=== PATIENT | male | born 1995 | race Caucasian/White ===

== ENCOUNTER → 2022-08-30 | Outpatient (CLI) | payer OTHER, SELFPAY ==
[2022-08-30 10:03] LABS: Absolute Lymphocyte Count 2.84 X10^3/uL (0.83-4.51); Absolute Neutrophil Count 3.5 X10^3/uL (2.0-7.7); Basophil# 0.08 X10^3/uL; Basophil% 1.1 % (0-1); Eosinophil# 0.18 X10^3/uL; Eosinophils% 2.5 % (0-5); Hematocrit 46.5 % (40-54); Hemoglobin 15.3 g/dL (13.0-16.5); Lymphocyte # 2.84 X10^3/ul (0.83-4.51); Lymphocyte % 39.6 % (19-41); Mean Corp Hgb Conc 32.9 g/dL (32-36); Mean Corpuscular Volume 94.1 fL (80-94); Mean Platelet Vol. 10.3 fl (6.2-12.0); Monocyte# 0.54 X10^3/uL; Monocyte% 7.5 % (0-10); NRBC Flagged by Analyzer 0 % (0-5); Neutrophil # 3.51 X10^3/uL (2.7-7.7); Platelet Count 299 K/mm3 (150-450); RBC Distribution Width SD 44.4 fl (35.1-43.9); Red Blood Count 4.94 M/mm3 (4.6-6.2); White Blood Count 7.2 K/mm3 (4.4-11.0)
[2022-08-30 10:20] LABS: Erythrocyte Sedimentation Rate 27 mm/hr (0-20)
[2022-08-30 10:36] LABS: Vitamin B12 554 pg/mL (211-911); Vitamin D,25 Hydroxy 13.3 ng/mL
[2022-08-30 10:49] LABS: AST(SGOT) 55 U/L (15-37); Alanine Aminotransfer ALT/SGPT 87 U/L (16-61); Albumin, Serum 3.8 g/dL (3.2-5.0); Alkaline Phosphatase 70 U/L (45-117); Anion Gap 7 (5-15); BUN 14 mg/dL (7-18); BUN/Creat Ratio 10.9 RATIO (10-20); CRP 9.11 mg/L (0.0-3.0); Calcium,Total 9.2 mg/dL (8.5-10.1); Chloride 104 mmol/L (98-107); Cholesterol 184 mg/dL (200); Creatinine, Serum 1.28 mg/dL (0.70-1.30); EST Glomerular Filtration Rate 71 mL/min (>60); Est Glom Filt Rate - Afr Amer 85 mL/min (>60); Globulin 3.9 g/dL (2.2-4.2); Glucose 120 mg/dL (74-106); High Density Lipoprotein 30 mg/dL; Potassium 3.8 mmol/L (3.5-5.1); Protein, Total 7.7 g/dL (6.4-8.2); Rheumatoid Factor < 10.0 IU/mL (<15); Sodium Level 138 mmol/L (136-145); Thyroid Stim Hormone (TSH) 1.89 uIU/mL (0.358-3.74); Triglycerides 379 mg/dL; Uric Acid 10.1 mg/dL (3.5-7.2); Very Low Density Lipoprotein 76 mg/dL (5-40)
[2022-08-31 15:52] LABS: ANTINUCLEAR ANTIBODIES DIRECT Negative (Negative)
== END | disposition home or self-care (01) ==
PROVIDERS: PCP Family Medicine; Visit Provider Family Medicine
DX: M79.10 Myalgia, unspecified site (principal); E11.9 Type 2 diabetes mellitus without complications
CPT/HCPCS: 80053; 80061; 82306; 82607; 84443; 84550; 85025; 85652; 86038; 86140; 86431

== ENCOUNTER → 2022-10-26 | Outpatient (CLI) | payer OTHER, SELFPAY ==
[2022-11-02 20:08] LABS: Insulin Like Growth Factor 134 ng/mL (101-307)
== END | disposition home or self-care (01) ==
PROVIDERS: PCP Family Medicine; Visit Provider Internal Medicine
DX: E22.0 Acromegaly and pituitary gigantism (principal)
CPT/HCPCS: 36415; 84305

== ENCOUNTER → 2022-12-23 | Outpatient (CLI) | payer OTHER, SELFPAY ==
[2022-12-23 17:35] LABS: Absolute Lymphocyte Count 3.02 X10^3/uL (0.83-4.51); Basophil# 0.08 X10^3/uL; Eosinophil# 0.21 X10^3/uL; Eosinophils% 2.6 % (0-5); Hematocrit 44.1 % (40-54); Hemoglobin 14.5 g/dL (13.0-16.5); Lymphocyte # 3.02 X10^3/ul (0.83-4.51); Lymphocyte % 37.7 % (19-41); Mean Corp Hgb Conc 32.9 g/dL (32-36); Mean Corpuscular Hgb 31.2 pg (27.0-32.0); Mean Corpuscular Volume 94.8 fL (80-94); Mean Platelet Vol. 9.9 fl (6.2-12.0); Monocyte# 0.69 X10^3/uL; Monocyte% 8.6 % (0-10); NRBC Flagged by Analyzer 0 % (0-5); Neutrophil # 3.99 X10^3/uL (2.7-7.7); Neutrophil % 49.9 % (47-70); Platelet Count 286 K/mm3 (150-450); RBC Distribution Width CV 12.6 % (11.6-14.6); RBC Distribution Width SD 43.8 fl (35.1-43.9); Red Blood Count 4.65 M/mm3 (4.6-6.2)
[2022-12-23 17:55] LABS: ALB/GLOB Ratio 0.9 RATIO (0.9-2.4); AST(SGOT) 26 U/L (15-37); Alanine Aminotransfer ALT/SGPT 39 U/L (16-61); Albumin, Serum 3.8 g/dL (3.2-5.0); Alkaline Phosphatase 64 U/L (45-117); Anion Gap 6 (5-15); BUN 16 mg/dL (7-18); BUN/Creat Ratio 10.7 RATIO (10-20); Calcium,Total 9.1 mg/dL (8.5-10.1); Chloride 105 mmol/L (98-107); EST Glomerular Filtration Rate 59 mL/min (>60); Est Glom Filt Rate - Afr Amer 71 mL/min (>60); Globulin 4.2 g/dL (2.2-4.2); Glucose 105 mg/dL (74-106); Potassium 3.8 mmol/L (3.5-5.1); Sodium Level 138 mmol/L (136-145)
[2022-12-23 17:57] LABS: Erythrocyte Sedimentation Rate 18 mm/hr (0-20)
== END | disposition home or self-care (01) ==
LOC: MFPLAB 15:39
PROVIDERS: PCP Family Medicine; Visit Provider Family Medicine
DX: R03.0 Elevated blood-pressure reading, without diagnosis of hypertension (principal)
CPT/HCPCS: 36415; 80053; 85025; 85652

== ENCOUNTER → 2022-12-23 | Outpatient (CLI) | payer OTHER, SELFPAY ==
--- NOTE | 2022-12-23 17:55 | US_ITS ---
STUDY: ABDOMINAL ULTRASOUND - RIGHT UPPER QUADRANT REASON FOR VISIT: Male, 27 years old Epigastric and RUQ pain TECHNIQUE: Ultrasound evaluation of the right upper quadrant was performed with real-time and static pa-scale imaging. TECHNICAL QUALITY: Adequate. COMPARISON: None. FINDINGS: Liver: The liver measures 17.9 cm. There is diffusely increased echogenicity of the liver. The bile ducts are within normal limits. There is hepatic color flow. The direction of portal flow is hepatopetal. There is no demonstrated mass lesion. Gallbladder: Normal distended gallbladder. The gallbladder wall measures 2 mm. There is a negative sonographic Centeno''s sign. There is no pericholecystic fluid. There are no gallstones. Common Bile Duct (C.B.D.): The common bile duct measures 4 mm. Pancreas: Not visualized due to bowel gas producing artifact. Right Kidney: Normal size of the right kidney. The right kidney measures 10.1 x 5.8 x 5.2 cm. Normal renal cortex. The right cortex measures 1.5 cm. There is no demonstrated renal mass or cyst. There is no right hydronephrosis. US/Abdomen Limited IMPRESSION: Large fatty infiltrated liver without evidence for gallstones or acute cholecystitis.. Nonvisualization of pancreas due to bowel gas producing artifact Electronically Signed: Cristofer Oliveros MD at 19:00 EDT ,
== END | disposition home or self-care (01) ==
LOC: US 17:53
PROVIDERS: PCP Family Medicine; Referring Provider Family Medicine; Visit Provider Family Medicine
DX: R03.0 Elevated blood-pressure reading, without diagnosis of hypertension (principal)
CPT/HCPCS: 76705

== ENCOUNTER → 2022-12-29 | Outpatient (CLI) | payer OTHER, SELFPAY ==
--- NOTE | 2022-12-29 15:49 | CT_ITS ---
EXAM: CT ABDOMEN AND PELVIS WITH INTRAVENOUS CONTRAST CLINICAL INDICATION: EPIGASTRIC PAIN TECHNIQUE: Helically acquired images were obtained of the abdomen and pelvis with intravenous contrast. This CT exam was performed using one or more of the following dose reduction techniques: automated exposure control, adjustment of the mA and/or kV according to patient size, and/or use of iterative reconstruction technique. CONTRAST: Oral and amp; IV Readi-CAT and amp; 100mL Isovue-300 COMPARISON: No relevant prior studies available. FINDINGS: LOWER THORAX: Unremarkable. Lung bases are clear. No cardiomegaly. No significant pericardial effusion. ABDOMEN: LIVER: Unremarkable. Homogeneous. No focal mass. GALLBLADDER AND BILE DUCTS: Unremarkable. No calcified gallstones. No gallbladder distention or wall edema. No intra- or extrahepatic biliary ductal dilation. PANCREAS: Unremarkable. No focal cystic or solid mass. SPLEEN: Unremarkable. Normal size without focal cystic or solid mass. ADRENALS: Unremarkable. No nodules. KIDNEYS AND URETERS: Unremarkable. Normal renal size and position. No hydronephrosis. STOMACH AND BOWEL: Unremarkable. No stomach or bowel distention. No focal inflammatory change. PELVIS: APPENDIX: No evidence of acute appendicitis. BLADDER: Unremarkable. REPRODUCTIVE: Unremarkable as visualized. No mass. ABDOMEN and PELVIS: INTRAPERITONEAL SPACE: Unremarkable. No ascites or other fluid collection. No free air. BONES/JOINTS: Unremarkable. No suspicious lytic or blastic abnormality. SOFT TISSUES: Unremarkable. No discrete abdominal or pelvic wall hernia. VASCULATURE: Unremarkable. Abdominal aorta is non-dilated. LYMPH NODES: Unremarkable. No enlarged lymph nodes. CT/Abdomen/Pelvis WITH Contrast IMPRESSION: Negative CT of the abdomen and pelvis with intravenous contrast. Electronically Signed: Eduardo Vegas MD at 16:37 EDT ,
== END | disposition home or self-care (01) ==
LOC: CT 15:44
PROVIDERS: PCP Family Medicine; Referring Provider Family Medicine; Visit Provider Family Medicine
DX: R10.13 Epigastric pain (principal)
CPT/HCPCS: 74177; Q9967

== ENCOUNTER → 2023-02-18 | Outpatient (CLI) | payer OTHER, SELFPAY ==
[2023-02-18 17:36] LABS: Absolute Lymphocyte Count 2.93 X10^3/uL (0.83-4.51); Absolute Neutrophil Count 4.1 X10^3/uL (2.0-7.7); Basophil# 0.08 X10^3/uL; Eosinophil# 0.23 X10^3/uL; Eosinophils% 2.8 % (0-5); Hematocrit 44.1 % (40-54); Hemoglobin 14.2 g/dL (13.0-16.5); Lymphocyte # 2.93 X10^3/ul (0.83-4.51); Lymphocyte % 36.3 % (19-41); Mean Corp Hgb Conc 32.2 g/dL (32-36); Mean Corpuscular Hgb 30.5 pg (27.0-32.0); Mean Corpuscular Volume 94.6 fL (80-94); Mean Platelet Vol. 10.3 fl (6.2-12.0); Monocyte# 0.68 X10^3/uL; Monocyte% 8.4 % (0-10); NRBC Flagged by Analyzer 0 % (0-5); Neutrophil # 4.13 X10^3/uL (2.7-7.7); Neutrophil % 51.1 % (47-70); Platelet Count 327 K/mm3 (150-450); RBC Distribution Width CV 12.5 % (11.6-14.6); RBC Distribution Width SD 43.4 fl (35.1-43.9); Red Blood Count 4.66 M/mm3 (4.6-6.2); White Blood Count 8.1 K/mm3 (4.4-11.0)
[2023-02-18 17:49] LABS: Erythrocyte Sedimentation Rate 26 mm/hr (0-20)
[2023-02-18 18:14] LABS: Vitamin B12 425 pg/mL (211-911)
[2023-02-18 18:34] LABS: ALB/GLOB Ratio 0.9 RATIO (0.9-2.4); AST(SGOT) 24 U/L (15-37); Alanine Aminotransfer ALT/SGPT 31 U/L (16-61); Albumin, Serum 3.7 g/dL (3.2-5.0); Alkaline Phosphatase 76 U/L (45-117); Anion Gap 6 (5-15); BUN 19 mg/dL (7-18); BUN/Creat Ratio 13.4 RATIO (10-20); Calcium,Total 9.2 mg/dL (8.5-10.1); Chloride 106 mmol/L (98-107); Creatinine, Serum 1.42 mg/dL (0.70-1.30); EST Glomerular Filtration Rate 62 mL/min (>60); Est Glom Filt Rate - Afr Amer 76 mL/min (>60); Globulin 4.1 g/dL (2.2-4.2); Glucose 104 mg/dL (74-106); Potassium 3.6 mmol/L (3.5-5.1); Protein, Total 7.8 g/dL (6.4-8.2); Sodium Level 139 mmol/L (136-145); Thyroid Stim Hormone (TSH) 1.87 uIU/mL (0.358-3.74)
[2023-02-22 14:08] LABS: Lyme Scn Total Ab w/Rflx Negative (Negative); PROEL- A/G Ratio 1.1 (0.7-1.7); PROEL- Albumin 3.6 g/dL (2.9-4.4); PROEL- Alpha-1 Globulin 0.3 g/dL (0.0-0.4); PROEL- Beta Globulin 1.2 g/dL (0.7-1.3); PROEL- Gamma Globulin 0.9 g/dL (0.4-1.8); PROEL- Globulin, Total 3.3 g/dL (2.2-3.9); PROEL- TOTAL PROTEIN 6.9 g/dL (6.0-8.5)
== END | disposition home or self-care (01) ==
LOC: MFPLAB 15:20
PROVIDERS: PCP Family Medicine; Visit Provider Family Medicine
DX: R20.2 Paresthesia of skin (principal)
CPT/HCPCS: 36415; 80053; 82607; 84165; 84443; 85025; 85652; 86140; 86618

== ENCOUNTER → 2023-03-03 | Outpatient (CLI) | payer OTHER, SELFPAY ==
[2023-03-03 18:14] LABS: CRP 5.38 mg/L (0.0-3.0); Rheumatoid Factor < 10.0 IU/mL (<15); Uric Acid 7.9 mg/dL (3.5-7.2)
[2023-03-03 18:40] LABS: Erythrocyte Sedimentation Rate 13 mm/hr (0-20)
[2023-03-03 19:45] LABS: Hemoglobin A1c 5.7 % (3.8-5.6)
[2023-03-05 11:08] LABS: CCP IgG Antibodies 11 units (0-19)
[2023-03-05 14:10] LABS: ANTINUCLEAR ANTIBODIES DIRECT Negative (Negative)
== END | disposition home or self-care (01) ==
LOC: MFPLAB 16:33
PROVIDERS: PCP Family Medicine; Visit Provider Family Medicine
DX: E11.9 Type 2 diabetes mellitus without complications (principal); R79.82 Elevated C-reactive protein (CRP)
CPT/HCPCS: 36415; 83036; 84550; 85652; 86038; 86140; 86200; 86431

== ENCOUNTER → 2023-04-04 | Outpatient (CLI) | payer OTHER, SELFPAY ==
[2023-04-04 17:52] LABS: Absolute Neutrophil Count 4.8 X10^3/uL (2.0-7.7); Basophil# 0.08 X10^3/uL; Basophil% 0.9 % (0-1); Eosinophil# 0.27 X10^3/uL; Hematocrit 46.9 % (40-54); Hemoglobin 15.3 g/dL (13.0-16.5); Lymphocyte % 35.7 % (19-41); Mean Corp Hgb Conc 32.6 g/dL (32-36); Mean Corpuscular Hgb 30.4 pg (27.0-32.0); Mean Corpuscular Volume 93.2 fL (80-94); Mean Platelet Vol. 10.2 fl (6.2-12.0); Monocyte# 0.58 X10^3/uL; Monocyte% 6.5 % (0-10); NRBC Flagged by Analyzer 0 % (0-5); Neutrophil % 53.5 % (47-70); Platelet Count 339 K/mm3 (150-450); RBC Distribution Width CV 12.4 % (11.6-14.6); RBC Distribution Width SD 42.6 fl (35.1-43.9); Red Blood Count 5.03 M/mm3 (4.6-6.2)
[2023-04-04 18:31] LABS: Anion Gap -8 (5-15); BUN 17 mg/dL (7-18); CRP 4.34 mg/L (0.0-3.0); Calcium,Total 9.3 mg/dL (8.5-10.1); Chloride 106 mmol/L (98-107); Creatinine, Serum 1.21 mg/dL (0.70-1.30); EST Glomerular Filtration Rate 75 mL/min (>60); Est Glom Filt Rate - Afr Amer 91 mL/min (>60); Ferritin 144 ng/mL (26-388); Glucose 102 mg/dL (74-106); Iron 71 ug/dL (65-175); Magnesium 2.3 mg/dL (1.6-2.6); Potassium 3.7 mmol/L (3.5-5.1); Sodium Level 126 mmol/L (136-145); Thyroid Stim Hormone (TSH) 2.89 uIU/mL (0.358-3.74)
== END | disposition home or self-care (01) ==
LOC: MFPLAB 15:30
PROVIDERS: PCP Family Medicine; Visit Provider Family Medicine
DX: R79.82 Elevated C-reactive protein (CRP) (principal); R55 Syncope and collapse
CPT/HCPCS: 36415; 80048; 82728; 83540; 83735; 84443; 85025; 86140

== ENCOUNTER → 2023-04-05 | Outpatient (CLI) | payer OTHER, SELFPAY ==
[2023-04-05 18:06] LABS: Urine Sodium 157 mmol/L (Not Establ.)
[2023-04-05 18:49] LABS: Anion Gap 4 (5-15); BUN 15 mg/dL (7-18); BUN/Creat Ratio 10.1 RATIO (10-20); Calcium,Total 8.8 mg/dL (8.5-10.1); Chloride 105 mmol/L (98-107); Creatinine, Serum 1.48 mg/dL (0.70-1.30); EST Glomerular Filtration Rate 59 mL/min (>60); Est Glom Filt Rate - Afr Amer 72 mL/min (>60); Glucose 130 mg/dL (74-106); Potassium 3.8 mmol/L (3.5-5.1); Sodium Level 138 mmol/L (136-145)
[2023-04-05 18:54] LABS: Osmolality, Serum 297 mOsm/KG (275-295)
== END | disposition home or self-care (01) ==
LOC: MFPLAB 14:59
PROVIDERS: PCP Family Medicine; Visit Provider Family Medicine
DX: E87.1 Hypo-osmolality and hyponatremia (principal)
CPT/HCPCS: 36415; 80048; 83930; 84300

== ENCOUNTER → 2023-05-03 | Outpatient (CLI) | payer OTHER, SELFPAY ==
[2023-05-03 10:40] LABS: Hemoglobin A1c 5.8 % (3.8-5.6)
[2023-05-03 10:57] LABS: ALB/GLOB Ratio 0.9 RATIO (0.9-2.4); AST(SGOT) 28 U/L (15-37); Alanine Aminotransfer ALT/SGPT 37 U/L (16-61); Albumin, Serum 3.8 g/dL (3.2-5.0); Alkaline Phosphatase 71 U/L (45-117); Anion Gap 6 (5-15); BUN 13 mg/dL (7-18); BUN/Creat Ratio 9.2 RATIO (10-20); Calcium,Total 9.4 mg/dL (8.5-10.1); Chloride 104 mmol/L (98-107); Creatinine, Serum 1.42 mg/dL (0.70-1.30); EST Glomerular Filtration Rate 62 mL/min (>60); Est Glom Filt Rate - Afr Amer 75 mL/min (>60); Globulin 4.1 g/dL (2.2-4.2); Glucose 113 mg/dL (74-106); Potassium 4.1 mmol/L (3.5-5.1); Protein, Total 7.9 g/dL (6.4-8.2); Sodium Level 136 mmol/L (136-145); T4 Free Direct 0.85 ng/dL (0.76-1.46); Thyroid Stim Hormone (TSH) 1.95 uIU/mL (0.358-3.74)
[2023-05-10 12:09] LABS: Dopamine, Pl <30 pg/mL (0-48); Epinephrine, Pl 35 pg/mL (0-62); Norepinephrine, Pl 393 pg/mL (0-874); Thyroid Peroxidase AB < 9 IU/mL (0-34); Thyroid Stim Immunoglob <0.10 IU/L (0.00-0.55)
== END | disposition home or self-care (01) ==
LOC: MFPLAB 08:46
PROVIDERS: PCP Family Medicine; Visit Provider Family Medicine
DX: R00.2 Palpitations (principal); E11.9 Type 2 diabetes mellitus without complications
CPT/HCPCS: 36415; 80053; 82384; 82533; 83036; 84439; 84443; 84445; 86376

== ENCOUNTER → 2023-06-14 | Outpatient (CLI) | payer OTHER, SELFPAY ==
--- NOTE | 2023-06-14 13:41 | STEWCON_ITS ---
Reason For Study: Syncope Stress Results Protocol: [facility] Protocol WITH DEFINITY Maximum Predicted HR: 191 bpm Target HR: 162 bpm % Maximum Predicted HR: 98 % DurationHeart Rate Stage (mm:ss) (bpm) BP Comment Baseline 77 118/80No Chest Pain; 3 ML Definity [facility] Protoocl Stage I 3:00 130 116/74No Chest Pain [facility] Protocol Stage II 3:00 155 132/70No Chest Pain [facility] Protocol Stage III 3:00 176 152/78No Chest Pain; Mild Dyspnea [facility] Protocol Stage IV 1:00 187 / No Chest Pain: Moderate Dyspnea Recovery 112 138/60No Chest Pain Stress Duration: 10:00 mm:ss Maximum Stress HR: 187 bpm METS: 13 Baseline Echocardiogram Findings Stress Echo Wall motion Data Resting WM Intermediate WM Stress WM Resting Wall Motion Wall Motion Stress No regional wall motion All segments Hyperkinetic. abnormalities noted. Ejection Fraction 55 %. EKG Data The baseline ECG displays normal sinus rhythm. No ischemic ECG changes with exercise. ECHO/Stress Test Echo W/Contrast Interpretation Summary No ischemic ECG changes with exercise. All LV wall segments augment postexercise. No echo evidence of ischemia. Ordering Physician: Hong Morillo Referring Physician: Hong Morillo Performed By: Alicia Lobo, NILE, RVT
--- OUTSIDE RECORDS SUMMARY | 2023-06-14 14:06 | XMS RPT_ITS | CCD ---
Author Name Unknown Address [address] [place] [address] Organization [facility] Care Team Providers Care Analysis Internship Name Role Phone Esterle, Yuni Unavailable Unavailable Esterle, Yuni Unavailable Unavailable Esterle, Yuni Unavailable Unavailable VAMSI GARCIA Unavailable Unavailable Sang Jones DO Primary Care Provider Sang Jones DO Primary Care Provider Medications Completed/Discontinued Medications Medication Drug Class(es) Dates Sig (Normalized) Sig (Original) busPIRone hydrochloride 10 mg oral tablet (1 source) End: 12-31-2021 take 7.5 mg by mouth twice daily busPIRone (BUSPAR) 10 mg tablet Take 7.5 mg by mouth twice daily. 0 12/31/2021 Discontinued Problems Active Problems Problem Classification Problem Date Documented Da te Episodic/Chronic Anxiety disorders (6 sources) Generalized anxiety disorder; Translations: [Generalized anxiety disorder] Onset: 12-31-2021 Chronic Essential hypertension (6 sources) Essential hypertension; Translations: [Essential (primary) hypertension] Onset: 12-31-2021 Chronic Immunizations and screening for infectious disease (2 sources) Patient encounter status; Translations: [Encounter for immunization] Episodic Mood disorders (6 sources) Recurrent major depressive episodes, moderate ; Translations: [Major depressive disorder, recurrent, moderate] Onset: 12-31-2021 Chronic Other connective tissue disease (1 source) Pain in left foot; Translations: [Pain in left foot] Onset: 06-17-2018 Episodic Other liver diseases (2 sources) Fatty (change of) liver, not elsewhere classified; Translations: [Fatty (change of) liver, not elsewhere classified] Onset: 05-02-2018 Chronic Other liver diseases (2 sources) Abnormal levels of other serum enzymes; Translations: [Abnormal levels of other serum enzymes] Onset: 05-02-2018 Episodic Other nutritional; endocrine; and metabolic disorders (4 sources) Body mass index 40+ - severely obese; Translations: [Morbid (severe) obesity due to excess calories] Onset: 12-31-2021 Chronic Past or Other Problems Problem Classification Problem Date Documented Da te Episodic/Chronic Other non-traumatic joint disorders (4 sources) Multiple joint pain; Translations: [Pain in unspecified joint] Onset: 12-31-2021 Episodic Results Test Name Value Interpretation Reference Range Facil ity Vital Signs Date Time Vital Sign Value Performing Clinician Yung lity 12-31-2021 09:33-0400 Body height 180.3 cm Sangbryant Prasadcini [employer] Work Phone: [facility] 12-31-2021 09:33-0400 Body weight 153.32 kg Sang Jones DO Work Phone: [facility] 12-31-2021 09:33-0400 Diastolic blood pressure 90 mm[Hg] Sang Andersoni DO Work Phone: [facility] 12-31-2021 09:33-0400 Heart rate 81 /min Sangbryant Jones DO Work Phone: [facility] 12-31-2021 09:33-0400 SaO2% (BldA) [Mass fraction] 97 % Sang Andersoni DO Work Phone: [facility] 12-31-2021 09:33-0400 Systolic blood pressure 160 mm[Hg] Sangbryant Prasadcini DO Work Phone: [facility] Encounters Encounter Date Encounter Type Care Provider Facility Start: 09-18-2022 Refill Sang Anderson i DO Work Phone: [facility] Plan of Treatment Date Care Activity Detail Author Start: 01-01-2032 Urine microalbumin profile DTAP,TDAP,TD (8 - Td or Tdap) [facility] Start: 02-11-2023 Influenza vaccination INFLUENZ A (Season Ended) [facility] Start: 02-02-2023 ANNUAL PCP TEAM SMOCKER RORY DISEASE VISIT ANNUAL PCP TEAM CHRONIC DISEASE VISIT [facility] Start: 02-02-2023 BP CONTROLLED (<130/80) BP CON TROLLED (<130/80) [facility] Start: 12-31-2022 ANNUAL PCP TEAM SMOCKER RORY DISEASE VISIT ANNUAL PCP TEAM CHRONIC DISEASE VISIT [facility] Start: 02-11-2022 Influenza vaccination INFLUENZA (#1) [facility] Start: 12-31-2021 End: 12-31-2022 CBC panel - Blood by Automated count CBC Lab Routine Hypertension, essential Screening for endocrine, metabolic and immunity disorder Expected: 12/31/2021, Expires: 12/31/2022 [facility] Work Phone: Immunizations Immunization Date Immunization Notes Care Provider Fa diaen 12-31-2021 tetanus toxoid, redu ap diphtheria toxoid, and acellular pertussis vaccine, adsorbed Sang Karen DO Work Phone: [facility] 01-06-2012 hepatitis A vaccine, pediatric/adolescent dosage, 2 dose schedule Sang [facility] DO Work Phone: [facility] 01-06-2012 human papilloma viru s vaccine, quadrivalent Sang [facility] DO Work Phone: [facility] 01-06-2012 meningococcal polysaccharide (groups A, C, Y and W-135) diphtheria toxoid conjugate vaccine ([facility]V4P) [facility] 01-06-2012 tetanus toxoid, redu ap diphtheria toxoid, and acellular pertussis vaccine, adsorbed Sang Karen DO Work Phone: [facility] 05-20-2009 novel influenza-H1N1 -09, preservative-free, injectable Sang Karen DO Work Phone: [facility] 09-18-1998 diphtheria, tetanus toxoids and acellular pertussis vaccine, unspecified formulation Sang Karen DO Work Phone: [facility] 09-18-1998 measles, mumps and rubella virus vaccine Sang Karen DO Work Phone: [facility] 09-18-1998 poliovirus vaccine, unspecified formulation Sang Karen DO Work Phone: [facility] 09-29-1995 diphtheria, tetanus toxoids and acellular pertussis vaccine, unspecified formulation Sang Karen DO Work Phone: [facility] 10-27-1994 haemophilus influenz ae type b vaccine, conjugate unspecified formulation Sang Karen DO Work Phone: [facility] 10-27-1994 measles, mumps and rubella virus vaccine Sang Karen DO Work Phone: [facility] 05-04-1994 diphtheria, tetanus toxoids and pertussis vaccine Sang Karen DO Work Phone: [facility] 05-04-1994 haemophilus influenz ae type b vaccine, conjugate unspecified formulation Sang Karen DO Work Phone: [facility] 05-04-1994 hepatitis B vaccine, pediatric or pediatric/adolescent dosage Sang Karen DO Work Phone: [facility] 05-04-1994 trivalent poliovirus vaccine, live, oral Sang Karen DO Work Phone: [facility] 1993 diphtheria, tetanus toxoids and pertussis vaccine Sang Karen DO Work Phone: [facility] 1993 haemophilus influenz ae type b vaccine, conjugate unspecified formulation Sang Karen DO Work Phone: [facility] 1993 trivalent poliovirus vaccine, live, oral Sang Karen DO Work Phone: [facility] 1993 diphtheria, tetanus toxoids and pertussis vaccine Sang Karen DO Work Phone: [facility] 1993 haemophilus influenz ae type b vaccine, conjugate unspecified formulation Sang Karen DO Work Phone: [facility] 1993 hepatitis B vaccine, pediatric or pediatric/adolescent dosage Sang Karen DO Work Phone: [facility] 1993 trivalent poliovirus vaccine, live, oral Sang Jones DO Work Phone: [facility] 1993 hepatitis B vaccine, pediatric or pediatric/adolescent dosage Sangfrancie Andersoni DO Work Phone: [facility] Payers Date Payer Category Payer Private Health Insurance 2017 Private Health Insurance [employer] PPO [id number] 2017-Present [phone] [address] [place] [address] PPO [id number] 1993 Unknown [id number] Social History Date Type Detail Facility Start: 06-16-2018 End: 02-02-2022 Tobacco smoking status NHIS Never smoked tobacco [facility] Start: 06-16-2018 End: 02-02-2022 Tobacco use and exposure Smokeless tobacco non-user [facility] Start: 06-16-2018 History SDOH Alcohol Comment once a month [facility] Start: 1995 Sex Assigned At Not on file [facility] Start: 12-21-2021 End: 12-31-2021 Exposure to SARS-CoV-2 (event) Not sure [facility] Note 09-20-2022 Telephone Encounter - Tori Welch Ma - 09/20/2022 8:34 AM EDT Note Date & Type Note Facility 09-20-2022 Miscellaneous Notes Formattin g of this note is different from the original. Patient phones requesting refills as follows: Last office visit 02/02/22. Follow up appointment scheduled on n/a. Requested Prescriptions Pending Prescriptions Disp Refills sertraline (ZOLOFT) 50 mg tablet [Pharmacy Med Name: Sertraline HCl 50 MG Oral Tablet] 90 tablet 0 Sig: Take 1 tablet by mouth once daily lisinopril (ZESTRIL) 10 mg tablet [Pharmacy Med Name: Lisinopril 10 MG Oral Tablet] 90 tablet 0 Sig: Take 1 tablet by mouth once daily Please review and advise. Tori Welch Ma documented in this encounter [facility] Note 06-23-2022 Telephone Encounter - Sang Jones DO - 06/23/2022 8:40 AM ESTTelephone Encounter - Randa Alva MA - 06/23/2022 8:21 AM EST Note Date & Type Note Facility 06-23-2022 Miscellaneous Notes Formattin g of this note is different from the original. The following approved medication requests have been transmitted electronically. Requested Prescriptions Pending Prescriptions Disp Refills sertraline (ZOLOFT) 50 mg tablet [Pharmacy Med Name: Sertraline HCl 50 MG Oral Tablet] 90 tablet 0 Sig: Take 1 tablet by mouth once daily lisinopril (ZESTRIL, PRINIVIL) 10 mg tablet [Pharmacy Med Name: Lisinopril 10 MG Oral Tablet] 90 tablet 0 Sig: Take 1 tablet by mouth once daily Sang Jones DO NOV 07/09/22 MEHDI 02/02/22 Patient electronically sent a request for the following prescription(s) Requested Prescriptions Pending Prescriptions Disp Refills sertraline (ZOLOFT) 50 mg tablet [Pharmacy Med Name: Sertraline HCl 50 MG Oral Tablet] 90 tablet 0 Sig: Take 1 tablet by mouth once daily lisinopril (ZESTRIL, PRINIVIL) 10 mg tablet [Pharmacy Med Name: Lisinopril 10 MG Oral Tablet] 90 tablet 0 Sig: Take 1 tablet by mouth once daily Patient aware RX will be sent to pharmacy. No need to notify patient. Please review. Randa Alva MA documented in this encounter [facility] Progress note 02-02-2022 Note Date & Type Note Facility 02-02-2022 Note HNO ID: [id number] Author: Sang Jones DO Service: ? Author Type: Physician Type: Progress Notes Filed: 02/02/2022 4:35 PM Note Text: CC: anxiety/depression follow up S: 26 year old male with history below presents for anxiety/depression follow up. RENA-7 Total Score: 6 (02/02/2022 4:05 PM) (0-4) minimal anxiety, (5-9) mild anxiety, (10-14) moderate anxiety, (15-21) severe anxiety PHQ-9 Score: 5 (02/02/2022 4:05 PM) (0-4) minimal depression, (5-9) mild depression, (10-14) moderate depression, (15-19) moderately severe depression, (20-27) severe depression Tolerating medication well but having trouble ejaculating. Sex drive is good otherwise. Skin also felt sensitive when first starting the medication but has subsided. Otherwise mood has significantly improved. States he is less paranoid, not worrying as much. HTN Last 3 Encounter BP Readings: Date: BP: 02/02/2022 122/68 12/31/2021 160/90 06/16/2018 142/91 No CP, SOB, dizziness, lightheadedness, palpitations, vision changes. Tolerating medication well. Lost 11# since his last visit- eating better and trying to exercise. PAST MEDICAL HISTORY Diagnosis Date COVID-19 08/2020 RENA (generalized anxiety disorder) 12/31/2021 Hypertension, essential 12/31/2021 Moderate episode of recurrent major depressive disorder (HCC) 12/31/2021 Obesity, Class III, BMI 40-49.9 (morbid obesity) (HCC) 12/31/2021 Polyarthralgia 12/31/2021 PAST SURGICAL HISTORY Procedure Laterality Date ORTHOPEDICS SURGERY HX 2014 ACL repair Current Outpatient Medications Medication Sig Dispense Refill sertraline (ZOLOFT) 50 mg tablet Take 1 tablet by mouth once daily. 90 tablet 1 lisinopril (ZESTRIL, PRINIVIL) 10 mg tablet Take 1 tablet by mouth once daily. 90 tablet 1 No current facility-administered medications for this visit. SOCIAL (pertinent): Social History Tobacco Use Smoking status: Never Smokeless tobacco: Never Vaping Use Vaping Use: Never used Substance Use Topics Drug use: No FAMILY (pertinent): No family history on file. ROS: See HPI O: PHYSICAL EXAM: BP 122/68 Pulse 64 Ht 180.3 cm (5' 11 ) Wt (!) 148.3 kg (327 lb) SpO2 98% BMI 45.61 kg/m? Gen: Patient is pleasant, alert, NAD, well appearing Head: Normocephalic, atraumatic CV: Regular rate and rhythm, normal S1/S2, no murmurs, rubs Pulm: Clear to auscultation bilaterally, no wheezes, crackles, or rhonchi Neuro: EOMI, no involuntary movements. Extrem: No cyanosis, clubbing, or edema. Distal pulses equal and palpable b/l Skin: Warm, dry, no visible rashes A/P: 26 year old male with ASSESSMENT/PLAN: 1. Moderate episode of recurrent major depressive disorder (HCC) - ICD9: 296.32, ICD10: F33.1 (primary diagnosis) 2. RENA (generalized anxiety disorder) - ICD9: 300.02, ICD10: F41.1 Improved. Continue current dose of the medication. We will consider weaning him off the medication in a couple of months if the sexual side effects continue to be bothersome and his mood remains stable. Patient expressed understanding of the plan and will follow up in 6 months. 3. Hypertension, essential - ICD9: 401.9, ICD10: I10 - good control - Continue current medication(s) - Encouraged dietary sodium restriction/DASH diet - Recommended regular aerobic exercise. - Recommend home blood pressure monitoring, to bring results in on next visit - Discussed need and benefit for weight loss. - Goal of BP <130/80 Sang Jones DO February 02, 2022 4:20 PM Follow up in 6 months [facility] Progress note 12-31-2021 Note Date & Type Note Facility 12-31-2021 Note HNO ID: [id number] Author: Sang Jones DO Service: ? Author Type: Physician Type: Progress Notes Filed: 12/31/2021 10:11 AM Note Text: CC: est care, multiple complaints S: 26 year old male with history below presents for est care, multiple complaints. Medical, surgical, family and social histories reviewed and updated below. Has a lot of anxiety in the winter times PHQ-9 Score: 14 (12/31/2021 9:31 AM) (0-4) minimal depression, (5-9) mild depression, (10-14) moderate depression, (15-19) moderately severe depression, (20-27) severe depression RENA-7 Total Score: 18 (12/31/2021 9:32 AM) (0-4) minimal anxiety, (5-9) mild anxiety, (10-14) moderate anxiety, (15-21) severe anxiety Admits to muscle/joint aches with weather changes. 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 Takes 600-800 mg/day as needed of ibuprofen for joint/muscle aches which helps. Admits to fear of going to work in the schools-has a 4-month-old daughter. No SI/HI. Interested in trying medication Did not do well on buspar in the past. Last 3 Encounter BP Readings: Date: BP: 12/31/2021 160/90 06/16/2018 142/91 PAST MEDICAL HISTORY Diagnosis Date - COVID-19 08/2020 PAST SURGICAL HISTORY Procedure Laterality Date - ORTHOPEDICS SURGERY HX 2014 ACL repair Current Outpatient Medications Medication Sig Dispense Refill - sertraline (ZOLOFT) 50 mg tablet Take 1 tablet by mouth once daily. 90 tablet 1 - lisinopril (ZESTRIL, PRINIVIL) 10 mg tablet Take 1 tablet by mouth once daily. 90 tablet 1 No current facility-administered medications for this visit. SOCIAL (pertinent): Social History Tobacco Use - Smoking status: Never Smoker - Smokeless tobacco: Never Used Substance Use Topics - Alcohol use: Not on file Comment: once a month - Drug use: No FAMILY (pertinent): History reviewed. No pertinent family history. ROS: See HPI O: PHYSICAL EXAM: BP 160/90 Pulse 81 Ht 180.3 cm (5' 11 ) Wt (!) 153.3 kg (338 lb) SpO2 97% BMI 47.14 kg/m? Gen: Patient is pleasant, alert, NAD, morbidly obese Head: Normocephalic, atraumatic CV: Regular rate and rhythm, normal S1/S2, no murmurs, rubs Pulm: Clear to auscultation bilaterally, no wheezes, crackles, or rhonchi Neuro: EOMI, no involuntary movements. Extrem: No cyanosis, clubbing, or edema. Distal pulses equal and palpable b/l Skin: Warm, dry, no visible rashes A/P: I spent 30 minutes in the visit, with more than 50% of the total izll-ye-hevh time of the visit in counseling / coordination of care. 26 year old male with ASSESSMENT/PLAN: 1. RENA (generalized anxiety disorder) - ICD9: 300.02, ICD10: F41.1 (primary diagnosis) 2. Moderate episode of recurrent major depressive disorder (HCC) - ICD9: 296.32, ICD10: F33.1 Trial of Zoloft 50 mg daily. Mechanism of action and side effects of the medication discussed with the patient who expressed understanding. He will follow-up in 4 weeks for medication titration. He will stop the medication if he is having severe side effects. - SERTRALINE 50 MG TABLET 3. Polyarthralgia - ICD9: 719.49, ICD10: M25.50 Can use ibuprofen as needed for the pain. If symptoms persist or worsen, we will consider rheumatologic/autoimmune work-up. 4. Obesity, Class III, BMI 40-49.9 (morbid obesity) (HCC) - ICD9: 278.01, ICD10: E66.01 Stable importance of diet and exercise discussed with patient Discussed the AHA/ACC recommendation of 150 minutes per week of moderate intensity aerobic exercise 5. Hypertension, essential - ICD9: 401.9, ICD10: I10 - newly diagnosed - Begin lisinopril (Zestril/Prinivil). Side effects of the medication discussed- patient expressed understanding. - Encouraged dietary sodium restriction/DASH diet - Recommended regular aerobic exercise. - Recommend home blood pressure monitoring, to bring results in on next visit - Discussed need and benefit for weight loss. - Goal of BP <130/80 - LISINOPRIL 10 MG TABLET - COMP METABOLIC PANEL - TSH BLD - CBC 6. Encounter for immunization - ICD9: V03.89, ICD10: Z23 - TDAP VACCINE AGE 7+ IM 7. Screening for endocrine, metabolic and immunity disorder - ICD9: V77.99, ICD10: Z13.29, Z13.228, Z13.0 - COMP METABOLIC PANEL - TSH BLD - CBC - LIPID PANEL BASIC Sang Jones DO December 31, 2021 9:55 AM Follow up in 4 weeks [facility] Instructions 12-31-2021 Patient Instructions Note Date & Type Note Facility 12-31-2021 Instructions Sang Jones DO - 12/31/2021 9:56 AM EDT Anti-inflammatory diet summary It is becoming increasingly clear that chronic inflammation is the root cause of many serious illnesses - including heart disease, many cancers, and Alzheimer's disease. It is also a factor in less serious but annoying problems like arthritis, irritable bowel, fibromyalgia, allergy, asthma, and skin conditions. We all know inflammation on the surface of the body as local redness, heat, swelling and pain. It is the cornerstone of the body's healing response, bringing more nourishment and more immune activity to a site of injury or infection. But when inflammation persists or serves no purpose, it damages the body and causes illness. Stress, lack of exercise, genetic predisposition, and exposure to toxins (like secondhand tobacco smoke) can all contribute to such chronic inflammation, but dietary choices play a big role as well. Learning how specific foods influence the inflammatory process is the best strategy for containing it and reducing long-term disease risks. In essence, the idea is simple: reduce or eliminate what you eat that causes inflammation and increase or substitute things that reduce inflammation. The Anti-Inflammatory Diet is not a diet in the popular sense - it is not intended as a weight-loss program (although people can and do lose weight on it), nor is it an eating plan to stay on for a limited period of time. Rather, it is way of selecting and preparing foods based on scientific knowledge of how they can help your body maintain optimum health. Along with influencing inflammation, this diet will provide steady energy and ample vitamins, minerals, essential fatty acids, dietary fiber, and protective phytonutrients. You can also adapt your existing recipes according to these anti-inflammatory diet principles: General Diet Tips: Aim for variety. Include as much fresh food as possible. Minimize your consumption of processed foods and fast food. Eat an abundance of fruits and vegetables. Caloric Intake Most adults need to consume between 2,000 and 3,000 calories a day. Women and smaller and less active people need fewer calories. Men and bigger and more active people need more calories. If you are eating the appropriate number of calories for your level of activity, your weight should not fluctuate greatly. The distribution of calories you take in should be as follows: 40 to 50 percent from carbohydrates, 30 percent from fat, and 20 to 30 percent from protein. Try to include carbohydrates, fat, and protein at each meal. Carbohydrates On a 2,752-ttinhjn-y-day diet, adult women should consume between 160 to 200 grams of carbohydrates a day. Adult men should consume between 240 to 300 grams of carbohydrates a day. The majority of this should be in the form of less-refined, less-processed foods with a low glycemic load. Reduce your consumption of foods made with wheat flour and sugar, especially bread and most packaged snack foods (including chips and pretzels). Eat more whole grains such as brown rice and bulgur wheat, in which the grain is intact or in a few large pieces. These are preferable to whole wheat flour products, which have roughly the same glycemic index as white flour products. Eat more beans, winter squashes, and sweet potatoes. Cook pasta al dente and eat it in moderation. Avoid products made with high fructose corn syrup. Fat On a 2,651-qwjuqol-i-day diet, 600 calories can come from fat - that is, about 67 grams. This should be in a ratio of 1:2:1 of saturated to monounsaturated to polyunsaturated fat. Reduce your intake of saturated fat by eating less butter, cream, high-fat cheese, unskinned chicken and fatty meats, and products made with palm kernel oil. Use extra-virgin olive oil as a main cooking oil. If you want a neutral tasting oil, use expeller-pressed, organic canola oil. Organic, high-oleic, expeller pressed versions of sunflower and safflower oil are also acceptable. Avoid regular safflower and sunflower oils, corn oil, cottonseed oil, and mixed vegetable oils. Strictly avoid margarine, vegetable shortening, and all products listing them as ingredients. Strictly avoid all products made with partially hydrogenated oils of any kind. Include in your diet avocados and nuts, especially walnuts, cashews, almonds, and nut butters made from these nuts. For omega-3 fatty acids, eat salmon (preferably fresh or frozen wild or canned sockeye), sardines packed in water or olive oil, moseley, and black cod (sablefish, butterfish); omega-3 fortified eggs; hemp seeds and flaxseeds (preferably freshly ground); or take a fish oil supplement (look for products that provide both EPA and DHA, in a convenient daily dosage of two to three grams). Protein On a 2,588-bztkraq-c-day diet, your daily intake of protein should be between 80 and 120 grams. Eat less protein if you have liver or kidney problems, allergies, or autoimmune disease. Decrease your consumption of animal protein except for fish and high quality natural cheese and yogurt. Eat more vegetable protein, especially from beans in general and soybeans in particular. Become familiar with the range of whole-soy foods available and find ones you like. Fiber Try to eat 40 grams of fiber a day. You can achieve this by increasing your consumption of fruit, especially berries, vegetables (especially beans), and whole grains. Ready-made cereals can be good fiber sources, but read labels to make sure they give you at least 4 and preferably 5 grams of bran per one-ounce serving. Phytonutrients To get maximum natural protection against age-related diseases (including cardiovascular disease, cancer, and neurodegenerative disease) as well as against environmental toxicity, eat a variety of fruits, vegetables and mushrooms. Choose fruits and vegetables from all parts of the color spectrum, especially berries, tomatoes, orange and yellow fruits, and dark leafy greens. Choose organic produce whenever possible. Learn which conventionally grown crops are most likely to carry pesticide residues and avoid them. Eat cruciferous (cabbage-family) vegetables regularly. Include soy foods in your diet. Drink tea instead of coffee, especially good quality white, green or oolong tea. If you drink alcohol, use red wine preferentially. Enjoy plain dark chocolate in moderation (with a minimum cocoa content of 70 percent). Vitamins and Minerals The best way to obtain all of your daily vitamins, minerals, and micronutrients is by eating a diet high in fresh foods with an abundance of fruits and vegetables. In addition, supplement your diet with the following antioxidant cocktail: Vitamin C, 200 milligrams a day. Vitamin E, 400 IU of natural mixed tocopherols (w-jhaya-ktkkpfsnma with other tocopherols, or, better, a minimum of 80 milligrams of natural mixed tocopherols and tocotrienols). Selenium, 200 micrograms of an organic (yeast-bound) form. Mixed carotenoids, 10,000-15,000 IU daily. The antioxidants can be most conveniently taken as part of a daily multivitamin/multimineral supplement that also provides at least 400 micrograms of folic acid and 2,000 IU of vitamin D. It should contain no iron (unless you are a female and having regular menstrual periods) and no preformed vitamin A (retinol). Take these supplements with your largest meal. Women should take supplemental calcium, preferably as calcium citrate, 500-700 milligrams a day, depending on their dietary intake of this mineral. Men should avoid supplemental calcium. Other Dietary Supplements If you are not eating oily fish at least twice a week, take supplemental fish oil, in capsule or liquid form (two to three grams a day of a product containing both EPA and DHA). Look for molecularly distilled products certified to be free of heavy metals and other contaminants. Talk to your doctor about going on low-dose aspirin therapy, one or two baby aspirins a day (81 or 162 milligrams). If you are not regularly eating sharan and turmeric, consider taking these in supplemental form. Add coenzyme Q10 (CoQ10) to your daily regimen: 60-100 milligrams of a softgel form taken with your largest meal. If you are prone to metabolic syndrome, take alpha-lipoic acid, 100 to 400 milligrams a day. Water Drink pure water, or drinks that are mostly water (tea, very diluted fruit juice, sparkling water with lemon) throughout the day. Use bottled water or get a home water pollution specialist if your tap water tastes of chlorine or other contaminants, or if you live in an area where the water is known or suspected to be contaminated. Related Resources: see [employer] Anti-inflammatory diet - details, details See below for a summary of foods that reduce inflammation in the body. In essence, the idea is simple: reduce or eliminate what you eat that causes inflammation and increase or substitute things that reduce inflammation. Foods to especially avoid that increase inflammation are sugar-sweetened or corn syrup-sweetened drinks, fruit juices (eat the fruit itself), fried foods and snacks, white flour and things made from white flour (white bread, cakes, cookies, crackers). HEALTHY SWEETS How much: Sparingly Healthy choices: Unsweetened dried fruit, dark chocolate, fruit sorbet Why: Dark chocolate provides polyphenols with antioxidant activity. Choose dark chocolate with at least 70 percent pure cocoa and have an ounce a few times a week. Fruit sorbet is a better option than other frozen desserts. RED WINE How much: Optional, no more than 1-2 glasses per day Healthy choices: Organic red wine Why: Red wine has beneficial antioxidant activity. Limit intake to no more than 1-2 servings per day. If you do not drink alcohol, do not start. SUPPLEMENTS How much: Daily Healthy choices: High quality multivitamin/multimineral that includes hubbard antioxidants (vitamin C, vitamin E, mixed carotenoids, and selenium); co-enzyme Q10; 2-3 grams of a molecularly distilled fish oil; 2,000 IU of vitamin D3 Why: Supplements help fill any gaps in your diet when you are unable to get your daily requirement of micronutrients. TEA How much: 2-4 cups per day Healthy choices: White, green, oolong teas Why: Tea is rich in catechins, antioxidant compounds that reduce inflammation. Purchase high-quality tea and learn how to correctly brew it for maximum taste and health benefits. HEALTHY HERBS & SPICES How much: Unlimited amounts Healthy choices: Turmeric, altamirano powder (which contains turmeric), sharan and garlic (dried and fresh), chili peppers, basil, cinnamon, naga, thyme Why: Use these herbs and spices generously to season foods. Turmeric and sharan are powerful, natural anti-inflammatory agents. OTHER SOURCES OF PROTEIN How much: 1-2 servings a week (one portion is equal to 1 ounce of cheese, 1 eight-ounce serving of dairy, 1 egg, 3 ounces cooked poultry or skinless meat) Healthy choices: High quality natural cheese and yogurt, omega-3 enriched eggs, skinless poultry, grass-fed lean meats Why: In general, try to reduce consumption of animal foods. If you eat chicken, choose organic, cage-free chicken and remove the skin and associated fat. Use organic dairy products moderately, especially yogurt and natural cheeses such as Emmental (Guamanian), Jarlsberg and true Parmesan. If you eat eggs, choose omega-3 enriched eggs (made by feeding hens a tahs-wkca-nimbxghv diet), or organic eggs from free-range chickens. COOKED MUSHROOMS How much: Unlimited amounts Healthy choices: Shiitake, enokidake, maitake, oyster mushrooms (and wild mushrooms if available) Why: These mushrooms contain compounds that enhance immune function. Never eat mushrooms raw, and minimize consumption of common commercial button mushrooms (including paulyini and portjamiello). WHOLE SOY FOODS How much: 1-2 servings per day (one serving is equal to cup tofu or tempeh, 1 cup soymilk, cup cooked edamame, 1 ounce of soynuts) Healthy choices: Tofu, tempeh, edamame, soy nuts, soymilk Why: Soy foods contain isoflavones that have antioxidant activity and are protective against cancer. Choose whole soy foods over fractionated foods like isolated soy protein powders and imitation meats made with soy isolate. FISH & SEAFOOD How much: 2-6 servings per week (one serving is equal to 4 ounces of fish or seafood) Healthy choices: Wild [place] salmon (especially sockeye), moseley, sardines, and black cod (sablefish) Why: These fish are rich in omega-3 fats, which are strongly anti-inflammatory. If you choose not to eat fish, take a molecularly distilled fish oil supplement that provides both EPA and DHA in a dose of 2-3 grams per day. HEALTHY FATS How much: 5-7 servings per day (one serving is equal to 1 teaspoon of oil, 2 walnuts, 1 tablespoon of flaxseed, 1 ounce of avocado) Healthy choices: For cooking, use extra virgin olive oil and expeller-pressed organic canola oil. Other sources of healthy fats include nuts (especially walnuts), avocados, and seeds - including hemp seeds and freshly ground flaxseed. [place]-3 fats are also found in cold water fish, omega-3 enriched eggs, and whole soy foods. Organic, expeller pressed, high-oleic sunflower or safflower oils may also be used, as well as walnut and hazelnut oils in salads and dark roasted sesame oil as a flavoring for soups and stir-fries Why: Healthy fats are those rich in either monounsaturated or omega-3 fats. Extra-virgin olive oil is rich in polyphenols with antioxidant activity and canola oil contains a small fraction of omega-3 fatty acids. WHOLE & CRACKED GRAINS How much: 3-5 servings a day (one serving is equal to about cup cooked grains) Healthy choices: Brown rice, basmati rice, wild rice, buckwheat, groats, barley, quinoa, steel-cut oats Why: Whole grains digest slowly, reducing frequency of spikes in blood sugar that promote inflammation. Whole grains means grains that are intact or in a few large pieces, not whole wheat bread or other products made from flour. PASTA (al dente) How much: 2-3 servings per week (one serving is equal to about cup cooked pasta) Healthy choices: Organic pasta, rice noodles, muller thread noodles, and part whole wheat and buckwheat noodles like [place] udon and soba Why: Pasta cooked al dente (when it has tooth to it) has a lower glycemic index than fully-cooked pasta. Aml-ntkdejih-gxmj carbohydrates should be the bulk of your carbohydrate intake to help minimize spikes in blood glucose levels. BEANS & LEGUMES How much: 1-2 servings per day (one serving is equal to cup cooked beans or legumes) Healthy choices: Beans like Anasazi, adzuki and black, as well as chickpeas, black-eyed peas and lentils Why: Beans are rich in folic acid, magnesium, potassium and soluble fiber. They are a ymq-weukeqpe-mumo food. Eat them well-cooked either whole or pureed into spreads like hummus. VEGETABLES How much: 4-5 servings per day minimum (one serving is equal to 2 cups salad greens, cup vegetables cooked, raw or juiced) Healthy Choices: Lightly cooked dark leafy greens (spinach, patricia greens, kale, [place]ian chard), cruciferous vegetables (broccoli, cabbage, [place] sprouts, kale, bok glenny and cauliflower), carrots, beets, onions, peas, squashes, sea vegetables and washed raw salad greens Why: Vegetables are rich in flavonoids and carotenoids with both antioxidant and anti-inflammatory activity. Go for a wide range of colors, eat them both raw and cooked, and choose organic when possible. FRUITS How much: 3-4 servings per day (one serving is equal to 1 medium size piece of fruit, cup chopped fruit, cup of dried fruit) Healthy choices: Raspberries, blueberries, strawberries, peaches, nectarines, oranges, pink grapefruit, red grapes, plums, pomegranates, blackberries, cherries, apples, and pears - all lower in glycemic load than most tropical fruits Why: Fruits are rich in flavonoids and carotenoids with both antioxidant and anti-inflammatory activity. Go for a wide range of colors, choose fruit that is fresh in season or frozen, and buy organic when possible. WATER How much: Throughout the day Healthy choices: Drink pure water, or drinks that are mostly water (tea, very diluted fruit juice, sparkling water with lemon) throughout the day. Why: Water is vital for overall functioning of the body. documented in this encounter [facility] History of Present illness Narrative 12-31-2021 Sang Jones DO - 12/31/2021 9:48 AM EDT Note Date & Type Note Facility 12-31-2021 History of Presen t illness Narrative CC: est care, multiple complaints S: 26 year old male with history below presents for est care, multiple complaints. Medical, surgical, family and social histories reviewed and updated below. Has a lot of anxiety in the winter times PHQ-9 Score: 14 (12/31/2021 9:31 AM) (0-4) minimal depression, (5-9) mild depression, (10-14) moderate depression, (15-19) moderately severe depression, (20-27) severe depression RENA-7 Total Score: 18 (12/31/2021 9:32 AM) (0-4) minimal anxiety, (5-9) mild anxiety, (10-14) moderate anxiety, (15-21) severe anxiety Admits to muscle/joint aches with weather changes. 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 Takes 600-800 mg/day as needed of ibuprofen for joint/muscle aches which helps. Admits to fear of going to work in the schools-has a 4-month-old daughter. No SI/HI. Interested in trying medication Did not do well on buspar in the past. Last 3 Encounter BP Readings: Date: BP: 12/31/2021 160/90 06/16/2018 142/91 PAST MEDICAL HISTORY Diagnosis Date COVID-19 08/2020 PAST SURGICAL HISTORY Procedure Laterality Date ORTHOPEDICS SURGERY HX 2015 ACL repair Current Outpatient Medications Medication Sig Dispense Refill sertraline (ZOLOFT) 50 mg tablet Take 1 tablet by mouth once daily. 90 tablet 1 lisinopril (ZESTRIL, PRINIVIL) 10 mg tablet Take 1 tablet by mouth once daily. 90 tablet 1 No current facility-administered medications for this visit. SOCIAL (pertinent): Social History Tobacco Use Smoking status: Never Smoker Smokeless tobacco: Never Used Substance Use Topics Alcohol use: Not on file Comment: once a month Drug use: No FAMILY (pertinent): History reviewed. No pertinent family history. ROS: See HPI O: PHYSICAL EXAM: BP 160/90 Pulse 81 Ht 180.3 cm (5' 11 ) Wt (!) 153.3 kg (338 lb) SpO2 97% BMI 47.14 kg/m Gen: Patient is pleasant, alert, NAD, morbidly obese Head: Normocephalic, atraumatic CV: Regular rate and rhythm, normal S1/S2, no murmurs, rubs Pulm: Clear to auscultation bilaterally, no wheezes, crackles, or rhonchi Neuro: EOMI, no involuntary movements. Extrem: No cyanosis, clubbing, or edema. Distal pulses equal and palpable b/l Skin: Warm, dry, no visible rashes A/P: I spent 30 minutes in the visit, with more than 50% of the total nosw-xd-dgnv time of the visit in counseling / coordination of care. 26 year old male with ASSESSMENT/PLAN: 1. RENA (generalized anxiety disorder) - ICD9: 300.02, ICD10: F41.1 (primary diagnosis) 2. Moderate episode of recurrent major depressive disorder (HCC) - ICD9: 296.32, ICD10: F33.1 Trial of Zoloft 50 mg daily. Mechanism of action and side effects of the medication discussed with the patient who expressed understanding. He will follow-up in 4 weeks for medication titration. He will stop the medication if he is having severe side effects. - SERTRALINE 50 MG TABLET 3. Polyarthralgia - ICD9: 719.49, ICD10: M25.50 Can use ibuprofen as needed for the pain. If symptoms persist or worsen, we will consider rheumatologic/autoimmune work-up. 4. Obesity, Class III, BMI 40-49.9 (morbid obesity) (HCC) - ICD9: 278.01, ICD10: E66.01 Stable importance of diet and exercise discussed with patient Discussed the AHA/ACC recommendation of 150 minutes per week of moderate intensity aerobic exercise 5. Hypertension, essential - ICD9: 401.9, ICD10: I10 - newly diagnosed - Begin lisinopril (Zestril/Prinivil). Side effects of the medication discussed- patient expressed understanding. - Encouraged dietary sodium restriction/DASH diet - Recommended regular aerobic exercise. - Recommend home blood pressure monitoring, to bring results in on next visit - Discussed need and benefit for weight loss. - Goal of BP <130/80 - LISINOPRIL 10 MG TABLET - COMP METABOLIC PANEL - TSH BLD - CBC 6. Encounter for immunization - ICD9: V03.89, ICD10: Z23 - TDAP VACCINE AGE 7+ IM 7. Screening for endocrine, metabolic and immunity disorder - ICD9: V77.99, ICD10: Z13.29, Z13.228, Z13.0 - COMP METABOLIC PANEL - TSH BLD - CBC - LIPID PANEL BASIC Sang Jones DO December 31, 2021 9:55 AM Follow up in 4 weeks documented in this encounter [facility] Evaluation note Note Date & Type Note Facility documented in this encounter [facility] Evaluation note Note Date & Type Note Facility documented in this encounter [facility] Evaluation note Note Date & Type Note Facility documented in this encounter [facility] Summary Purpose Family History No Family History Records FoundNo Family History Records FoundNo Family History Records FoundNo Family History Records FoundNo Family History Records Found Advance Directives Documents on File Type Date Recorded Patient [employer] Expl anation Advance Directive(s) 06/16/2018 11:49 PM Additional Source Comments (unrecognized sect ion and content) No Status Records FoundNo Status Records FoundNo Status Records FoundNo Status Records FoundNo Status Records Found INFORMATION SOURCE (unrecogn ized section and content) DATE CREATED AUTHOR AUTHOR'S ORGANIZ ATION 06/17/2018 [facility] DATE CREATED AUTHOR AUTHOR'S ORGANIZ ATION 06/17/2018 [facility] DATE CREATED AUTHOR AUTHOR'S ORGANIZ ATION 01/12/[address] [facility] DATE CREATED AUTHOR AUTHOR'S ORGANIZ ATION 02/05/2022 [facility] Source Comments (unrecognize d section and content) In the event this informatio n is protected by the Federal Confidentiality of Alcohol and Drug Abuse Patient Records regulations: The Federal rules restrict any use of the information to criminally investigate or prosecute any alcohol or drug abuse patient.[facility] event this information is protected by the Federal Confidentiality of Alcohol and Drug Abuse Patient Records regulations: The Federal rules restrict any use of the information to criminally investigate or prosecute any alcohol or drug abuse patient.[facility] the event this information is protected by the Federal Confidentiality of Alcohol and Drug Abuse Patient Records regulations: The Federal rules restrict any use of the information to criminally investigate or prosecute any alcohol or drug abuse patient.[facility] Reason for Visit (unrecogniz ed section and content) Reason Comments Refill Request Care Teams (unrecognized sec tion and content) Analysis Internship Relationship Specialty Start Date End Date Sang Jones DO [address] [place] [address] PCP - General Family Medicine 12/31/21 Analysis Internship Relationship Specialty Start Date End Date Sang Jones DO [address] [place] [address] PCP - General Family Medicine 12/31/21 FOR RECORDS PERTAINING TO PATIENTS WHO ARE OR HAVE BEEN ENROLLED IN A CHEMICAL DEPENDENCY/SUBSTANCEABUSE PROGRAM, SOME INFORMATION MAY BE OMITTED. This clinical summary was aggregated from multiple sources. Caution should be exercised in using it in the provision of clinical care. This summary normalizes information from multiple sources, and as a consequence, information in this document may materially change the coding, format and clinical context of patient data. In addition, data may be omitted in some cases. CLINICAL DECISIONS SHOULD BE BASED ON THE PRIMARY CLINICAL RECORDS. [facility] [employer] [facility]. provides no warranty or guarantee of the accuracy or completeness of information in this document.
== END | disposition home or self-care (01) ==
PROVIDERS: PCP Family Medicine; Referring Provider Family Medicine; Visit Provider Family Medicine
DX: R55 Syncope and collapse (principal)
CPT/HCPCS: 93017; 93350; Q9957; A4216; C8928

== ENCOUNTER → 2023-08-26 | Outpatient (CLI) | payer OTHER, SELFPAY ==
--- NOTE | 2023-08-26 06:54 | ECHOCS_ITS ---
Reason For Study: Syncope and Collapse Procedure This was a 2D Doppler, Color Flow transthoracic echocardiogram. Contrast injection was performed. Exam performed in department. Left Ventricle Normal size and thickness. The left ventricular ejection fraction is 55 %. No evidence for diastolic dysfunction. Right Ventricle Normal right ventricle. Atria The left and right atria are normal. Mitral Valve Trivial mitral valve insufficiency. Tricuspid Valve Trivial tricuspid valve insufficiency. Normal pulmonary artery pressure. Aortic Valve Trisinus/trileaflet aortic valve. Pulmonic Valve The pulmonic valve is not well visualized. Great Vessels Normal sized aortic root. Pericardium/Pleural No pericardial effusion. Medication Diluted definity 2ml given slow IV push to enhance endocardial definition. MMode/2D Measurements & Calculations LVIDd: 5.3 cm IVSd: 1.1 cm Ao root diam: 3.1 cm LVIDs: 3.5 cm LVPWd: 1.0 cm RVDd: 3.9 cm FS: 34.2 % LAV(MOD-bp): 51.9 ml LVAd ap4: 37.6 cm2 SV(MOD-sp4): 75.9 ml LAV(MOD-bp) Indexed: 20.2 ml/m2 LVLd ap4: 8.8 cm LAV(MOD-sp2): 49.6 ml EDV(MOD-sp4): 131.6 ml LAV(MOD-sp4): 54.2 ml EDV(sp4-el): 135.9 ml LVAs ap4: 21.7 cm2 LVLs ap4: 7.1 cm ESV(MOD-sp4): 55.6 ml ESV(sp4-el): 56.4 ml EF(MOD-sp4): 57.7 % EF(sp4-el): 58.5 % SV(sp4-el): 79.5 ml LA A4 area: 18.9 cm2 LA dimension(2D): 4.5 cm RA A4 area: 14.1 cm2 TAPSE: 2.6 cm Time Measurements MV dec time: 0.23 sec Doppler Measurements & Calculations MV E max woo: 82.0 cm/sec Lat Peak E' Woo: 19.7 cm/sec Med Peak E' Woo: 10.2 cm/sec MV A max woo: 48.5 cm/sec E/E' lat: 4.2 E/E' med: 8.1 MV E/A: 1.7 MV dec slope: 350.2 cm/sec2 Ao V2 max: 146.3 cm/sec LV V1 max: 118.1 cm/sec Ao max P.6 mmHg LV V1 max P.6 mmHg Ao V2 mean: 101.5 cm/sec LV V1 mean P.0 mmHg Ao mean P.7 mmHg LV V1 mean: 80.9 cm/sec Ao V2 VTI: 31.7 cm LV V1 VTI: 25.0 cm AV (velocity ratio): 0.79 PA V2 max: 127.1 cm/sec TR max woo: 208.0 cm/sec TR max P.3 mmHg ECHO/Echo Complete W/ Contrast Interpretation Summary The left ventricular ejection fraction is 55 %. Ordering Physician: Barbra Vasques Referring Physician: Beverly Soto Performed By: Naty Ndiaye RDCS, RVT
--- OUTSIDE RECORDS SUMMARY | 2023-08-26 06:57 | XMS RPT_ITS | CCD ---
Author Name Unknown Address [address] [place] [address] Organization [facility] Care Team Providers Care Immigration Judge Name Role Phone Esterle, Yuni Unavailable Unavailable Esterle, Yuni Unavailable Unavailable Esterle, Yuni Unavailable Unavailable VAMSI GARCIA Unavailable Unavailable Sang Alfaro DO Primary Care Provider Sang Alfaro DO Primary Care Provider Medications Current Medications Medication Drug Class(es) Dates Sig (Normalized) Sig (Original) lisinopril 10 mg oral tablet (7 sources) Angiotensin Converting Enzyme Inhibitor Start: 07-30-2023 End: 01-26-2024 take 1 tablet by mouth once daily lisinopril (ZESTRIL) 10 mg tablet Indications: Hypertension, essential Take 1 tablet by mouth once daily 90 tablet 0 07/30/2023 01/26/2024 Active Completed/Discontinued Medications Medication Drug Class(es) Dates Sig (Normalized) Sig (Original) busPIRone hydrochloride 10 mg oral tablet (1 source) End: 12-31-2021 take 7.5 mg by mouth twice daily busPIRone (BUSPAR) 10 mg tablet Take 7.5 mg by mouth twice daily. 0 12/31/2021 Discontinued Problems Active Problems Problem Classification Problem Date Documented Da te Episodic/Chronic Anxiety disorders (8 sources) Generalized anxiety disorder; Translations: [Generalized anxiety disorder] Onset: 12-31-2021 Chronic Essential hypertension (10 sources) Essential hypertension; Translations: [Essential (primary) hypertension] Onset: 12-31-2021 Chronic Immunizations and screening for infectious disease (2 sources) Patient encounter status; Translations: [Encounter for immunization] Episodic Mood disorders (8 sources) Recurrent major depressive episodes, moderate ; [...] Episodic Other nutritional; endocrine; and metabolic disorders (7 sources) Body mass index 40+ - severely obese; Translations: [Morbid (severe) obesity due to excess calories] Onset: 12-31-2021 Chronic Past or Other Problems Problem Classification Problem Date Documented Da te Episodic/Chronic Other non-traumatic joint disorders (6 sources) Multiple joint pain; Translations: [Pain in unspecified joint] Onset: 12-31-2021 Episodic Results Test Name Value Interpretation Reference Range Facil ity Vital Signs Date Time Vital Sign Value Performing Clinician Yung litjean 12-31-2021 09:33-0400 Body height 180.3 cm Sangbryant Andersoni DO Work Phone: [facility] 12-31-2021 09:33-0400 Body weight 153.32 kg Sang Andersoni DO Work Phone: [facility] 12-31-2021 09:33-0400 Diastolic blood pressure 90 mm[Hg] Sang Karen DO Work Phone: [facility] 12-31-2021 09:33-0400 Heart rate 81 /min Sangfrancie Andersoni DO Work Phone: [facility] 12-31-2021 09:33-0400 SaO2% (BldA) [Mass fraction] 97 % Sang Karen DO Work Phone: [facility] 12-31-2021 09:33-0400 Systolic blood pressure 160 mm[Hg] Sang Karen DO Work Phone: [facility] Encounters Encounter Date Encounter Type Care Provider Facility Start: 08-16-2023 ambulatory Sang Anderson i DO Work Phone: Internal Medicine [facility] [place] Start: 07-29-2023 Refill Сергей MARTINEZHOUSING INSPECTOR Work Phone: [facility] Plan of Treatment Date Care Activity Detail Author Start: 01-01-2032 Urine microalbumin profile [facility] Start: 08-16-2023 End: 11-15-2023 Basic metabolic 2000 panel - Serum or Plasma BASIC METABOLIC PNL Lab Routine Hypertension, essential Expected: 08/16/2023, Expires: 11/15/2023 [facility] Work Phone: Immunizations Immunization Date Immunization Notes Care Provider Fa cilijose 12-31-2021 tetanus toxoid, redu ap diphtheria toxoid, and acellular pertussis vaccine, adsorbed Sang Karen DO Work Phone: [facility] 01-06-2012 hepatitis A vaccine, pediatric/adolescent dosage, [address] [facility] DO Work Phone: [facility] 01-06-2012 human papilloma viru s vaccine, quadrivalent Sang Karen DO Work Phone: [facility] 01-06-2012 meningococcal polysaccharide (groups A, C, Y and W-135) diphtheria toxoid conjugate vaccine ([facility]) [facility] 01-06-2012 tetanus toxoid, redu ap diphtheria toxoid, and acellular pertussis vaccine, adsorbed Sang Karen DO Work Phone: [facility] 05-20-2009 novel influenza-H1N1 -09, preservative-free, injectable Sang Karen DO Work Phone: [facility] 05-20-2009 influenza virus vacc ine, unspecified formulation Сергей Wright APRN.HOUSING INSPECTOR Work Phone: [facility] 09-18-1998 diphtheria, tetanus toxoids and acellular pertussis vaccine, unspecified formulation Sang Karen DO Work Phone: [facility] 09-18-1998 measles, mumps and rubella virus vaccine Sang Karen DO Work Phone: [facility] 09-18-1998 poliovirus vaccine, unspecified formulation Sang Karen DO Work Phone: [facility] 09-29-1995 diphtheria, tetanus toxoids and acellular pertussis vaccine, unspecified formulation Sang Karen DO Work Phone: [facility] 10-27-1994 haemophilus influenz ae type b vaccine, conjugate unspecified formulation Sang Karen DO Work Phone: [facility] 10-27-1994 measles, mumps and rubella virus vaccine Sang Karen DO Work Phone: [facility] 05-04-1994 diphtheria, tetanus toxoids and pertussis vaccine Sang Karen DO Work Phone: [facility] 05-04-1994 haemophilus influenz ae type b vaccine, conjugate unspecified formulation Sang Karen DO Work Phone: [facility] 05-04-1994 hepatitis B vaccine, pediatric or pediatric/adolescent dosage Sang Karen DO Work Phone: [facility] 05-04-1994 trivalent poliovirus vaccine, live, oral Sang Karen DO Work Phone: [facility] 1993 diphtheria, tetanus toxoids and pertussis vaccine Sang Karen DO Work Phone: [facility] 1993 haemophilus influenz ae type b vaccine, conjugate unspecified formulation Sang Karen DO Work Phone: [facility] 1993 trivalent poliovirus vaccine, live, oral Sang Karen DO Work Phone: [facility] 1993 diphtheria, tetanus toxoids and pertussis vaccine Sang Karen DO Work Phone: [facility] 1993 haemophilus influenz ae type b vaccine, conjugate unspecified formulation Sang Karen DO Work Phone: [facility] 1993 hepatitis B vaccine, pediatric or pediatric/adolescent dosage Sang Karen DO Work Phone: [facility] 1993 trivalent poliovirus vaccine, live, oral Sang Alfaro DO Work Phone: [facility] 1993 hepatitis B vaccine, pediatric or pediatric/adolescent dosage Sang Alfaro DO Work Phone: [facility] Payers Date Payer Category Payer Private Health Insurance 2017 Private Health Insurance [employer] PPO [id number] 2017-Present [phone] [address] [facility] [place] [address] O [id number] 1995 Unknown [id number] Social History Date Type Detail Facility Start: 06-16-2018 End: 02-02-2022 Tobacco smoking status NHIS Never smoked tobacco [facility] Start: 06-16-2018 End: 02-02-2022 Tobacco use and exposure Smokeless tobacco non-user [facility] Start: 06-16-2018 History SDOH Alcohol Comment once a month [facility] Start: 1995 Sex Assigned At Not on file [facility] Start: 12-21-2021 End: 12-31-2021 Exposure to SARS-CoV-2 (event) Not sure [facility] Start: 02-02-2022 End: 06-30-2022 [facility] Start: 02-02-2022 End: 06-30-2022 Tobacco use panel [facility] Adult Depression Scr eening Assessment 1 [facility] Clinical Notes 12-31-2021 to 08-16-2023 Telephone Encounter - Sang Alfaro DO - 07/30/2023 9:43 AM ESTTelephone Encounter - Tori Welch Ma - 07/30/2023 9:38 AM ESTPatient Danny Alfaro DO - 12/31/2021 9:48 AM EDT Note Date & Type Note Facility 08-16-2023 Note Patient Outreach (IN [facility]) DAX GABRIEL ([id number]) 1995 Date Time Provider Department 08/16/23 SANG ALFARO During your visit today, we recorded the following information about you: Allergies As of Date: 08/16/2023 (No Known Allergies) Date Reviewed: 02/02/2022 Reviewed by: Sang Alfaro DO - Fully Assessed Visit Diagnoses:Hypertension, essential [I10] Obesity, Class III, BMI 40-49.9 (morbid obesity) ([facility]) [E66.01] Order(s):BASIC METABOLIC PNL [SQBMP] Order #: [id number] FUTURE HGB A1C [ZXWQM0L] Order #: [id number] FUTURE Prescriptions as of 08/19/2023 - lisinopril (ZESTRIL) 10 mg tablet Take 1 tablet by mouth once daily - sertraline (ZOLOFT) 50 mg tablet Take 1 tablet by mouth once daily Problem List As Of Date 08/16/2023 Noted Resolved RENA (generalized anxiety disorder) [F41.1] 12/31/2021 Moderate episode of recurrent major depressive *12/31/2021 Obesity, Class III, BMI 40-49.9 (morbid obesity*12/31/2021 Polyarthralgia [M25.50] 12/31/2021 Hypertension, essential [I10] 12/31/2021 Encounter Status:Closed by ANIKET PAULINO on 08/19/23 [facility] 07-30-2023 Miscellaneous Notes The following approved medication requests have been transmitted electronically. Requested Prescriptions Pending Prescriptions Disp Refills lisinopril (ZESTRIL) 10 mg tablet [Pharmacy Med Name: Lisinopril 10 MG Oral Tablet] 90 tablet 0 Sig: Take 1 tablet by mouth once daily Sang Karen, DO Overdue for visit- please ask him to schedule Patient phones requesting refills as follows: Requested Prescriptions Pending Prescriptions Disp Refills lisinopril (ZESTRIL) 10 mg tablet [Pharmacy Med Name: Lisinopril 10 MG Oral Tablet] 90 tablet 0 Sig: Take 1 tablet by mouth once daily Please review and advise. Tori Welch Ma documented in this encounter [facility] 09-20-2022 Miscellaneous Notes Patient phones requesting refills as follows: Last [...] Tori Welch Ma documented in this encounter [facility] 06-23-2022 Miscellaneous Notes The following approved medication requests have been [...] 1 tablet by mouth once daily Sang Alfaro DO NOV 07/09/22 [facility] 08/23/22 Patient electronically sent a request for the [...] Randa Alva MA documented in this encounter [facility] 12-31-2021 Instructions Sang Alfaro DO - 12/31/2021 9:56 AM EDT Anti-inflammatory [...] protein at each meal. Carbohydrates On a 2,364-igmzxlq-u-day diet, adult women should consume between 160 [...] high fructose corn syrup. Fat On a 2,887-pigopgr-v-day diet, 600 calories can come from fat [...] two to three grams). Protein On a 2,503-zsmlzeq-i-day diet, your daily intake of protein should [...] E, 400 IU of natural mixed tocopherols (d-rqfeq-ehjtcqeoiw with other tocopherols, or, better, a minimum [...] bottled water or get a home water resource engineer if your tap water tastes of chlorine or other contaminants, or if you live in an area where the water is known or suspected to be contaminated. Related Resources: see Miro Anti-inflammatory diet - details, details See below [...] yogurt and natural cheeses such as Emmental (Romanian), Jarlsberg and true Parmesan. If you eat eggs, choose omega-3 enriched eggs (made by feeding hens a xxqh-idzs-qyrofxfp diet), or organic eggs from free-range chickens. COOKED MUSHROOMS How much: Unlimited amounts Healthy choices: Shiitake, enokidake, maitake, oyster mushrooms (and wild mushrooms if available) Why: These mushrooms contain compounds that enhance immune function. Never eat mushrooms raw, and minimize consumption of common commercial button mushrooms (including crimini and portobello). WHOLE SOY FOODS How much: 1-2 servings [...] including hemp seeds and freshly ground flaxseed. Genoa-3 fats are also found in cold water [...] pasta) Healthy choices: Organic pasta, rice noodles, mullre thread noodles, and part whole wheat and buckwheat noodles like English udon and soba Why: Pasta cooked al dente (when it has tooth to it) has a lower glycemic index than fully-cooked pasta. Kop-cwvakxrl-rvpu carbohydrates should be the bulk of your [...] potassium and soluble fiber. They are a ljy-ugomvjni-zsnh food. Eat them well-cooked either whole or pureed into spreads like hummus. VEGETABLES How much: 4-5 servings per day minimum (one serving is equal to 2 cups salad greens, cup vegetables cooked, raw or juiced) Healthy Choices: Lightly cooked dark leafy greens (spinach, patricia greens, kale, Romanian chard), cruciferous vegetables (broccoli, cabbage, [place] sprouts, kale, bok glenny and cauliflower), carrots, [...] of the body. documented in this encounter [facility] 12-31-2021 History of Presen t illness Narrative [...] aches with weather changes. 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 Takes 600-800 mg/day as needed of [...] with more than 50% of the total bccf-zf-qeac time of the visit in counseling / [...] - CBC - LIPID PANEL BASIC Sang Alfaro DO December 31, 2021 9:55 AM Follow up in 4 weeks documented in this encounter [facility] Diagnosis RENA (generalized anxiety disorder) Generalized anxiety disorder Moderate episode of recurrent major depressive disorder (HCC) Hypertension, essential Unspecified essential hypertension documented in this encounter [facility] note* Diagnosis RENA (generalized anxiety disorder) Generalized anxiety disorder Moderate episode of recurrent major depressive disorder (HCC) Hypertension, essential Unspecified essential hypertension documented in this encounter [facility] note* Diagnosis Hypertension, essential Unspecified essential hypertension documented in this encounter [facility] note* Diagnosis Hypertension, essential Unspecified essential hypertension Obesity, Class III, BMI 40-49.9 (morbid obesity) (HCC) Morbid obesity documented in this encounter [facility] Summary Purpose Family History No Family History Records FoundNo Family History Records FoundNo Family History Records FoundNo Family History Records FoundNo Family History Records Found Advance Directives No Advanced Directives Records FoundDocuments on File Type Date Recorded 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 Advance Directive(s) 06/16/2018 11:49 PM Additional Source Comments (unrecognized sect ion and content) No Status Records FoundNo Status Records FoundNo Status Records FoundNo Status Records FoundNo Status Records Found INFORMATION SOURCE (unrecogn ized section and content) DATE CREATED AUTHOR AUTHOR'S ORGANIZ ATION 06/17/2018 [facility] DATE CREATED AUTHOR AUTHOR'S ORGANIZ ATION 06/17/2018 [facility] DATE CREATED AUTHOR AUTHOR'S ORGANIZ ATION 01/12/2022 [facility] DATE CREATED AUTHOR AUTHOR'S ORGANIZ ATION 08/20/2023 [facility] Source Comments (unrecognize d section and content) In the event this informatio n is protected by the Federal Confidentiality of Alcohol and Drug Abuse Patient Records regulations: The Federal rules restrict any use of the information to criminally investigate or prosecute any alcohol or drug abuse patient.[facility] the event this information is protected by the Federal Confidentiality of Alcohol and Drug Abuse Patient Records regulations: The Federal rules restrict any use of the information to criminally investigate or prosecute any alcohol or drug abuse patient.[facility] the event this information is protected by the Federal Confidentiality of Alcohol and Drug Abuse Patient Records regulations: The Federal rules restrict any use of the information to criminally investigate or prosecute any alcohol or drug abuse patient.[facility] the event this information is protected by the Federal Confidentiality of Alcohol and Drug Abuse Patient Records regulations: The Federal rules restrict any use of the information to criminally investigate or prosecute any alcohol or drug abuse patient.[facility] the event this information is protected by the Federal Confidentiality of Alcohol and Drug Abuse Patient Records regulations: The Federal rules restrict any use of the information to criminally investigate or prosecute any alcohol or drug abuse patient.[facility] Reason for Visit (unrecogniz ed section and content) Reason Comments Refill Request Care Teams (unrecognized sec tion and content) Immigration Judge Relationship Specialty Start Date End Date Sang Alfaro DO [address] [place], [place] [address] PCP - General Family Medicine 12/31/21 Immigration Judge Relationship Specialty Start Date End Date Sang Alfaro DO [address] [place], [place] [id number] PCP - General Family Medicine 12/31/21 Immigration Judge Relationship Specialty Start Date End Date Sang Alfaro DO [address] [place], [place] [id number] PCP - General Family Medicine 12/31/21 FOR [...] BE BASED ON THE PRIMARY CLINICAL RECORDS. [facility] [email or web address] [facility]. provides no warranty or guarantee of the accuracy or completeness of information in this document.
== END | disposition home or self-care (01) ==
LOC: CVS 06:54
PROVIDERS: PCP Family Medicine; Referring Provider Internal Medicine Cardiovascular Disease; Visit Provider Internal Medicine Cardiovascular Disease
DX: R55 Syncope and collapse (principal)
CPT/HCPCS: 93306; Q9957; A4216; C8929

== ENCOUNTER → 2023-09-27 | Outpatient (CLI) | payer OTHER, SELFPAY ==
[2023-09-27 09:25] LABS: Hematocrit 43.8 % (40-54); Hemoglobin 14.9 g/dL (13.0-16.5); Mean Corpuscular Hgb 30.8 pg (27.0-32.0); Mean Corpuscular Volume 90.5 fL (80-94); Mean Platelet Vol. 9.4 fl (6.2-12.0); Platelet Count 325 K/mm3 (150-450); RBC Distribution Width CV 12.4 % (11.6-14.6); RBC Distribution Width SD 40.6 fl (35.1-43.9); Red Blood Count 4.84 M/mm3 (4.6-6.2); White Blood Count 7.7 K/mm3 (4.4-11.0)
[2023-09-27 09:47] LABS: Anion Gap 4 (5-15); BUN 18 mg/dL (7-18); BUN/Creat Ratio 13.5 RATIO (10-20); Calcium,Total 9.4 mg/dL (8.5-10.1); Chloride 104 mmol/L (98-107); Creatinine, Serum 1.33 mg/dL (0.70-1.30); EST Glomerular Filtration Rate 67 mL/min (>60); Est Glom Filt Rate - Afr Amer 81 mL/min (>60); Glucose 116 mg/dL (74-106); Potassium 4.2 mmol/L (3.5-5.1); Sodium Level 136 mmol/L (136-145)
--- NOTE | 2023-09-28 18:54 | PCM.TILTTABL ---
Staff Staff: Cira Cooley and Naty Madrid Summary Pre Test Resting HR: 88 Pre Test Resting BP: 137/96 Minimum Test HR: 80 Maximum Test HR: 127 Minimum Test BP: 68/55 Maximum Test BP: 145/92 Reason for Test Termination: Syncope Physician Tilt Table Report Patient's Physicians Primary Care Physician: Beverly Soto Indications/Diagnosis: Presyncope Procedure Comments: Patient was brought to the noninvasive lab in the postabsorptive nonsedated state. Informed consent was obtained. Initial EKG was performed demonstrating sinus rhythm with a rate of 73 bpm and a blood pressure of 143/68 mmHg. The patient was then put in the 70 degree head upright tilt position. The heart rate increased to approximately 105 bpm with a blood pressure 140/90 mmHg. Patient complained of mild lightheadedness and dizziness at the time test was in progress. After this the patient was put back in the recumbent position. The patient was then administered 0.4 mg of sublingual nitroglycerin. The initial heart rate was 116 bpm with a blood pressure of 132/90 mmHg. The heart rate then increased to 227 bpm with blood pressure dropping to a mario of 68/55 mmHg with the patient becoming clammy lightheaded and experiencing syncope. The patient was then put back in the recumbent position with improvement in the blood pressure and heart rate. Final blood pressure was 115/77 with a heart rate of 88 bpm. Summary: Tilt table test suggestive of orthostatic hypotension.
[2023-09-28 18:59] VITALS: BP 137/96; BP 145/92; BP 68/55
== END | disposition home or self-care (01) ==
PROVIDERS: PCP Family Medicine; Visit Provider Internal Medicine Cardiovascular Disease
DX: R55 Syncope and collapse (principal); R00.2 Palpitations; R42 Dizziness and giddiness
CPT/HCPCS: 36415; 80048; 85027; 93660; J7040; A4216

== ENCOUNTER → 2024-07-11 | Outpatient (CLI) | payer OTHER, SELFPAY ==
[2024-07-11 17:24] LABS: Absolute Lymphocyte Count 2.68 X10^3/uL (0.83-4.51); Absolute Neutrophil Count 4.2 X10^3/uL (2.0-7.7); Basophil# 0.11 X10^3/uL; Basophil% 1.4 % (0-1); Eosinophil# 0.16 X10^3/uL; Eosinophils% 2.1 % (0-5); Hematocrit 45.4 % (40-54); Hemoglobin 15.7 g/dL (13.0-16.5); Lymphocyte # 2.68 X10^3/ul (0.83-4.51); Lymphocyte % 34.5 % (19-41); Mean Corp Hgb Conc 34.6 g/dL (32-36); Mean Corpuscular Hgb 30.9 pg (27.0-32.0); Mean Corpuscular Volume 89.4 fL (80-94); Mean Platelet Vol. 9.7 fl (6.2-12.0); Monocyte# 0.58 X10^3/uL; Monocyte% 7.5 % (0-10); NRBC Flagged by Analyzer 0 % (0-5); Neutrophil % 54.1 % (47-70); Platelet Count 333 K/mm3 (150-450); RBC Distribution Width CV 12.8 % (11.6-14.6); RBC Distribution Width SD 41.6 fl (35.1-43.9); Red Blood Count 5.08 M/mm3 (4.6-6.2); White Blood Count 7.8 K/mm3 (4.4-11.0)
[2024-07-11 17:40] LABS: Vitamin B12 576 pg/mL (211-911); Vitamin D,25 Hydroxy 22.4 ng/mL
[2024-07-11 18:22] LABS: Cholesterol 188 mg/dL (200); High Density Lipoprotein 37 mg/dL; Iron 85 ug/dL (65-175); Triglycerides 589 mg/dL
[2024-07-17 12:28] LABS: VITAMIN B6 26.7 ug/L (3.4-65.2)
== END | disposition home or self-care (01) ==
LOC: VSLAB 14:52
PROVIDERS: PCP Family Medicine; Visit Provider Nurse Practitioner
DX: F41.1 Generalized anxiety disorder (principal)
CPT/HCPCS: 36415; 80061; 82306; 82607; 83540; 84207; 84443; 85025